=== PATIENT | male | born 1970 | race Caucasian/White ===

== ENCOUNTER 2017-08-02 11:41 | Emergency (ER) | payer SELFPAY ==
[2017-08-02] MEDS ORDERED: CLINDAMYCIN 600 MG/D5W RTU 600 MG/50 ML RTUPB IV ONE (12:16)
[2017-08-02] MEDS ORDERED: KETOROLAC TROMETHAMINE INJ/PF 30 MG/1 ML SDV IV ONE (12:20)
--- NOTE | 2017-08-02 12:20 | ER Document Report ---
ED Medical Screen (RME) - General Chief Complaint: Finger Injury Stated Complaint: FINGER PAIN Time Seen by Provider: 08/02/17 12:13 Notes: The patient is a 47-year-old male, right-handed and works as a contractor, presents with 1 week of worsening right middle finger pain and swelling that started after he was at work when something sharp cut it. He got upset and punched a window. Unsure if there is still glass in it. Is noticing discharge out of the wound. Tetanus is not UTD. PE: Swollen, erythematous right 3rd finger with linear laceration over dorsal surface of PIP I have greeted and performed a rapid initial assessment of this patient. A comprehensive ED assessment and evaluation of the patient, analysis of test results and completion of the medical decision making process will be conducted by additional ED providers. TRAVEL OUTSIDE OF THE [place] IN LAST 30 DAYS: No - Related Data Allergies/Adverse Reactions: hydrocodone Allergy (Verified 08/02/17 11:44) Home Medications: Current Home Medications No Home Medications 08/02/17 [History] Past Medical History - Social History Frequency of alcohol use: Occasional Drug Abuse: Marijuana Renal/ Medical History: Denies: Hx Peritoneal Dialysis Past Surgical History: Reports: Hx Orthopedic Surgery - right knee, coccyx, spine - Immunizations Hx Diphtheria, Pertussis, Tetanus Vaccination: No Physical Exam - Vital signs Vitals: Temp Pulse Resp BP Pulse Ox 98.9 F 67 18 150/89 H 100 08/02/17 11:51 08/02/17 11:51 08/02/17 11:51 08/02/17 11:51 08/02/17 11:51 Course - Vital Signs Vital signs: Temp Pulse Resp BP Pulse Ox 98.9 F 67 18 150/89 H 100 08/02/17 11:51 08/02/17 11:51 08/02/17 11:51 08/02/17 11:51 08/02/17 11:51
--- NOTE | 2017-08-02 13:11 | RADIOLOGY REPORT (SQ) ---
EXAM DESCRIPTION: FINGER RIGHT COMPLETED DATE/TIME: 08/02/2017 12:59 pm REASON FOR STUDY: 3rd finger injury and swelling COMPARISON: None. NUMBER OF VIEWS: Three views. TECHNIQUE: AP, lateral, and oblique images acquired of the right third finger. LIMITATIONS: None. FINDINGS: MINERALIZATION: Normal. BONES: No acute fracture or dislocation. Old fracture of the 5th metacarpal. No worrisome bone lesi ons. SOFT TISSUES: Dorsal soft tissue swelling. No foreign body. OTHER: No other significant finding. IMPRESSION: DORSAL SOFT TISSUE SWELLING. NO RADIOPAQUE FOREIGN BODY. NO BONY FINDINGS. COMMENT: SITE OF TRAUMA/COMPLAINT MARKED/STAMP COMPLETED: YES. TECHNICAL DOCUMENTATION: JOB ID: [id number] [employer]- All Rights Reserved
[2017-08-02 13:27] LABS: ABSOLUTE EOSINOPHILS # (AUTO) 0.2 10^3/uL (0.0-0.6); ABSOLUTE LYMPHOCYTES (AUTO) 1.7 10^3/uL (0.5-4.7); ABSOLUTE MONOCYTES (AUTO) 0.7 10^3/uL (0.1-1.4); ABSOLUTE NEUT (AUTO) 4.1 10^3/uL (1.7-8.2); BASOPHILS % (AUTO) 0.7 % (0-2); EOSINOPHILS % (AUTO) 2.9 % (0-6); HEMATOCRIT 44.4 % (37.9-51.0); HEMOGLOBIN 15.3 g/dL (13.5-17.0); HGB HCT DIFFERENCE 1.5; LYMPHOCYTES % (AUTO) 25.6 % (13-45); MEAN CORPUSCULAR HEMOGLOBIN 32.2 pg (27.0-33.4); MEAN CORPUSCULAR HGB CONC 34.4 g/dL (32.0-36.0); MEAN CORPUSCULAR VOLUME 93 fl (80-97); MONOCYTES % (AUTO) 9.6 % (3-13); RED BLOOD COUNT 4.75 10^6/uL (4.35-5.55); SEGMENTED NEUTROPHILS % (AUTO) 61.2 % (42-78); WHITE BLOOD COUNT 6.8 10^3/uL (4.0-10.5)
--- NOTE | 2017-08-02 13:31 | ER Document Report ---
ED Hand/Wrist Injury - General Chief Complaint: Finger Injury Stated Complaint: FINGER PAIN Time Seen by Provider: 08/02/17 12:13 TRAVEL OUTSIDE OF THE [place] 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 And sustain and swelling. And presented to the ED. Middle interphalangeal joint laceration. Denies any fever chills or other constitutional symptoms. He could not use that finger but able to use the wrist. - Related Data Allergies/Adverse Reactions: hydrocodone Allergy (Verified 08/02/17 11:44) Past Medical History - General Information source: Patient - Social History Smoking Status: Current Every Day Smoker Frequency of alcohol use: Occasional Drug Abuse: Marijuana Family History: Reviewed & Not Pertinent Patient has suicidal ideation: No Patient has homicidal ideation: No Renal/ Medical History: Denies: Hx Peritoneal Dialysis Past Surgical History: Reports: Hx Orthopedic Surgery - right knee, coccyx, spine - Immunizations Hx Diphtheria, Pertussis, Tetanus Vaccination: No Review of Systems - Review of Systems Notes: Review of system otherwise unremarkable Physical Exam - Vital signs Vitals: Temp Pulse Resp BP Pulse Ox 98.9 F 67 18 150/89 H 100 08/02/17 11:51 08/02/17 11:51 08/02/17 11:51 08/02/17 11:51 08/02/17 11:51 - Notes Notes: General exam-alert oriented not in any major distress Examination of the finger-right middle finger at the middle interphalangeal joint on the ventral surface there is a linear laceration noted with purulent discharge surrounded by swelling and is warm and tender to touch. Limitation of flexion and extension due to pain. Distally neurovascular function was within normal limits. Proximally there is no swelling of the joint that is metacarpophalangeal joints noted. Course - Re-evaluation Re-evalutation: 08/02/17 13:32 He was given clindamycin IV. Wound cultures were done - Vital Signs Vital signs: Temp Pulse Resp BP Pulse Ox 98.9 F 67 18 150/89 H 100 08/02/17 11:51 08/02/17 11:51 08/02/17 11:51 08/02/17 11:51 08/02/17 11:51 - Laboratory Result Diagrams: 08/02/17 12:50 08/02/17 12:50 - Diagnostic Test Radiology results interpreted by me: 08/02/17 13:35 Diagnostic report text EXAM DESCRIPTION: FINGER RIGHT COMPLETED DATE/TIME: 08/02/2017 12:59 pm REASON FOR STUDY: 3rd finger injury and swelling COMPARISON: None. NUMBER OF VIEWS: Three views. TECHNIQUE: AP, lateral, and oblique images acquired of the right third finger. LIMITATIONS: None. FINDINGS: MINERALIZATION: Normal. BONES: No acute fracture or dislocation. Old fracture of the 5th metacarpal. No worrisome bone lesions. SOFT TISSUES: Dorsal soft tissue swelling. No foreign body. OTHER: No other significant finding. IMPRESSION: DORSAL SOFT TISSUE SWELLING. NO RADIOPAQUE FOREIGN BODY. NO BONY FINDINGS. COMMENT: SITE OF TRAUMA/COMPLAINT MARKED/STAMP COMPLETED: YES. TECHNICAL DOCUMENTATION: JOB ID: [id number] [employer]- All Rights Reserved Discharge - Discharge Clinical Impression: Laceration of finger Qualifiers: Encounter type: initial encounter Finger: middle finger Damage to nail status: without damage Foreign body presence: without foreign body Laterality: right Qualified Code(s): S61.212A - Laceration without foreign body of right middle finger without damage to nail, initial encounter Open wound of finger, infected Qualifiers: Encounter type: initial encounter Qualified Code(s): S61.209A - Unspecified open wound of unspecified finger without damage to nail, initial encounter; L08.9 - Local infection of the skin and subcutaneous tissue, unspecified; L08.9 - Local infection of the skin and subcutaneous tissue, unspecified Instructions: Antibiotic Ointment Protection ([facility]), Laceration Care ([facility]), Prophylactic Antibiotic ([facility]), Soap Cleansing ([facility]), Tetanus Immunization Given ([facility]) Additional Instructions: Return to ED in 24 hours for recheck Prescriptions: Clindamycin HCl 300 mg PO TID #30 capsule Referrals: ORTHOPEDICS [Provider Group] - Follow up as needed
[2017-08-02 13:47] LABS: ALANINE AMINOTRANSFERASE 27 U/L (21-72); ALBUMIN 4.7 g/dL (3.5-5.0); ALKALINE PHOSPHATASE 96 U/L (38-126); ANION GAP 14 (5-19); ASPARTATE AMINO TRANSFERASE 30 U/L (17-59); BILIRUBIN,DIRECT 0.4 mg/dL (0.0-0.4); BLOOD UREA NITROGEN 10 mg/dL (7-20); CALCIUM 10.5 mg/dL (8.4-10.2); CARBON DIOXIDE 29 mmol/L (22-30); CHLORIDE 101 mmol/L (98-107); CREATININE RESULT 0.84 mg/dL (0.52-1.25); GLUCOSE 93 mg/dL (75-110); POTASSIUM 4.6 mmol/L (3.6-5.0); SODIUM 143.6 mmol/L (137-145); TOTAL PROTEIN 8.2 g/dL (6.3-8.2)
[2017-08-02] MEDS ORDERED: DIPH/PERTUSS(ACELL)/TETANUS VAC/PF 0.5 ML SYR (>=10YO) IM ONE (14:31)
[2017-08-02 14:49] VITALS: BP 151/99
== END 2017-08-02 14:50 | disposition home or self-care (01) ==
LOC: ER 11:41
DX: S61.212A Laceration without foreign body of right middle finger without damage to nail, initial encounter (principal); S61.209A Unspecified open wound of unspecified finger without damage to nail, initial encounter; L08.9 Local infection of the skin and subcutaneous tissue, unspecified; M79.89 Other specified soft tissue disorders; W22.01XA Walked into wall, initial encounter; F17.200 Nicotine dependence, unspecified, uncomplicated
CPT/HCPCS: 99283; 90471; 96375; 96365; 36415; 87070; 87205; 85025; 80053; 73140; 90715; J1885